=== PATIENT | female | born 1965 | race Two or more races ===

== ENCOUNTER 2017-05-15 22:45 | Emergency (ER) | payer MEDICAID ==
[~2017-05-15] VITALS: Ht 165.1 cm; Wt 74.8 kg
[2017-05-15] MEDS ORDERED: VITAMINS (23:04)
--- NOTE | 2017-05-15 23:30 | Emergency Room Report ---
History of Present Illness General Chief Complaint: Abdominal Pain Source: Patient Present Illness HPI 51-year-old female with no sig pmhx p/w abdominal pain one day. Patient claimed to mid lower abdomen for pain, radiates to R flank, intermittent. No relieving or exacerbating factors Pt reports n/v, 2-3 episodes of nbnb vomiting, denies diarrhea or constipation. Her last bowel movement was yesterday, denies it being hard Denies fever, chills. No hx of abdominal surgeries. No hx of endoscopies/colonoscopies. no hx of renal stones Allergies: Coded Allergies: No Known Allergies (Unverified , 05/15/17) Patient History Past Medical History: see triage record Past Surgical History: none Pertinent Family History: none Reviewed Nursing Documentation: PMH: Agreed, PSxH: Agreed Nursing Documentation-PMH Past Medical History: No Stated History Review of Systems All Other Systems: negative except mentioned in HPI Physical Exam Vital Signs Date Time Temp Pulse Resp B/P (MAP) Pulse Ox O2 Delivery O2 Flow Rate FiO2 05/15/17 22:55 97.6 63 18 135/70 95 Room Air 97.5 Sp02 EP Interpretation: reviewed, normal General Appearance: alert, GCS 15, non-toxic, mild distress Head: normocephalic, atraumatic Eyes: bilateral eye normal inspection, bilateral eye PERRL, bilateral eye EOMI ENT: normal ENT inspection, normal pharynx, normal voice, moist mucus membranes Neck: normal inspection, full range of motion, supple Respiratory: normal inspection, lungs clear, normal breath sounds, no respiratory distress, no retraction, no wheezing, speaking full sentences, chest symmetrical Cardiovascular #1: normal inspection, regular rate, rhythm, normal capillary refill Cardiovascular #2: 2+ radial (R), 2+ radial (L) Gastrointestinal: other - suprapubic tenderness, no focal rlq tenderness, soft , no guarding or rigidity, no cva tenderness Musculoskeletal: normal inspection, back normal, normal range of motion, non- tender Neurologic: normal inspection, alert, oriented x3, responsive, motor strength/ tone normal, sensory intact, normal gait, speech normal Psychiatric: normal inspection, judgement/insight normal, memory normal Skin: normal inspection, normal color, no rash, warm/dry, well hydrated, normal turgor Medical Decision Making Diagnostic Impression: Primary Impression: Urinary tract infection ER Course 51-year-old female with lower abdominal pain Differential Diagnosis: Gastritis, gastroenteritis, appendicitis, diverticulitis, kidney stone, UTI/ pyelo Plan: Basic labs, ua CT abdopelvis ER course: Pt is nontoxic appearing, nad. +positive UA. given ceftriaxone. abdomen continues to be soft. no need for CT imaging at this time as pt with suprapubic pain and positive ua Disposition: Patient is to be discharged to home with keflex Patient is instructed to follow up with their primary care doctor within 5 days. Strict return precautions discussed with patient such as fever, chills, worsening/severe abdominal pain, nausea, vomiting, black or bloody stools, which may indicate severe illness. Patient verbalizes understanding and agrees with plan. Please note that this Emergency Department Report was dictated using [employer]pri[employer] technology software, occasionally this can lead to erroneous entry secondary to interpretation by the dictation equipment Laboratory Tests Test 05/15/17 23:32 White Blood Count 7.6 K/UL (4.8-10.8) Red Blood Count 4.50 M/UL (4.20-5.40) Hemoglobin 14.4 G/DL (12.0-16.0) Hematocrit 40.3 % (37.0-47.0) Mean Corpuscular Volume 90 FL (80-99) Mean Corpuscular Hemoglobin 32.0 PG (27.0-31.0) H Mean Corpuscular Hemoglobin Concent 35.7 G/DL (32.0-36.0) Red Cell Distribution Width 10.5 % (11.6-14.8) L Platelet Count 238 K/UL (150-450) Mean Platelet Volume 7.5 FL (6.5-10.1) Neutrophils (%) (Auto) 61.6 % (45.0-75.0) Lymphocytes (%) (Auto) 29.4 % (20.0-45.0) Monocytes (%) (Auto) 6.3 % (1.0-10.0) Eosinophils (%) (Auto) 1.9 % (0.0-3.0) Basophils (%) (Auto) 0.8 % (0.0-2.0) Urine Color Pale yellow Urine Appearance Clear Urine pH 6 (4.5-8.0) Urine Specific [place] 1.015 (1.005-1.035) Urine Protein Negative (NEGATIVE) Urine Glucose (UA) Negative (NEGATIVE) Urine Ketones Negative (NEGATIVE) Urine Occult Blood 4+ (NEGATIVE) H Urine Nitrite Positive (NEGATIVE) H Urine Bilirubin Negative (NEGATIVE) Urine Urobilinogen Normal MG/DL (0.0-1.0) Urine Leukocyte Esterase 1+ (NEGATIVE) H Urine RBC 20-30 /HPF (0 - 2) H Urine WBC 2-4 /HPF (0 - 2) Urine Squamous Epithelial Cells Few /LPF (NONE/OCC) Urine Bacteria Moderate /HPF (NONE) H Sodium Level 140 MMOL/L (136-145) Potassium Level 3.3 MMOL/L (3.5-5.1) L Chloride Level 104 MMOL/L (98-107) Carbon Dioxide Level 28 MMOL/L (21-32) Anion Gap 8 mmol/L (5-15) Blood Urea Nitrogen 17 mg/dL (7-18) Creatinine 0.7 MG/DL (0.55-1.30) Estimate Glomerular Filtration Rate > 60 mL/min (>60) Glucose Level 148 MG/DL (74-106) H Calcium Level 9.1 MG/DL (8.5-10.1) Total Bilirubin 0.3 MG/DL (0.2-1.0) Aspartate Amino Transferase (AST) 19 U/L (15-37) Alanine Aminotransferase (ALT) 27 U/L (12-78) Alkaline Phosphatase 97 U/L (46-116) Total Protein 7.5 G/DL (6.4-8.2) Albumin 3.6 G/DL (3.4-5.0) Globulin 3.9 g/dL Albumin/Globulin Ratio 0.9 (1.0-2.7) L Lipase 142 U/L (73-393) Last Vital Signs Date Time Temp Pulse Resp B/P (MAP) Pulse Ox O2 Delivery O2 Flow Rate FiO2 05/15/17 22:55 97.6 63 18 135/70 95 Room Air 97.5 Disposition: HOME, SELF-CARE Condition: Improved Scripts Cephalexin* (KEFLEX*) 500 Mg Capsule 500 MG ORAL Q6H, #28 CAP 0 Refills Prov: Nikhil Chávez M.D. 05/16/17 Nikhil Chávez M.D. May 15, 2017 23:30
[2017-05-15 23:42] LABS: APPEARANCE,URINE CLEAR; BILIRUBIN, URINE NEGATIVE (NEGATIVE); COLOR,URINE PALE YELLOW; GLUCOSE, URINE (UA) NEGATIVE (NEGATIVE); KETONES,URINE NEGATIVE (NEGATIVE); LEUKOCYTE ESTERASE ,URINE 1+ (NEGATIVE); NITRITE,URINE POSITIVE (NEGATIVE); PH,URINE 6 (4.5-8.0); PROTEIN,URINE NEGATIVE (NEGATIVE); UROBILINOGEN,URINE NORMAL MG/DL (0.0-1.0)
[2017-05-15 23:43] LABS: BASOPHILS % (AUTO) 0.8 % (0.0-2.0); EOSINOPHILS % (AUTO) 1.9 % (0.0-3.0); HEMATOCRIT 40.3 % (37.0-47.0); HEMOGLOBIN 14.4 G/DL (12.0-16.0); LYMPHOCYTES % (AUTO) 29.4 % (20.0-45.0); MEAN CORPUSCULAR VOLUME 90 FL (80-99); MONOCYTES % (AUTO) 6.3 % (1.0-10.0); NEUTROPHILS % (AUTO) 61.6 % (45.0-75.0); PLATELET COUNT 238 K/UL (150-450); RED CELL DISTRIBUTION WIDTH 10.5 % (11.6-14.8); WHITE BLOOD COUNT 7.6 K/UL (4.8-10.8)
[2017-05-15 23:50] LABS: ANION GAP 8 mmol/L (5-15); BLOOD UREA NITROGEN 17 mg/dL (7-18); CALCIUM 9.1 MG/DL (8.5-10.1); CARBON DIOXIDE 28 MMOL/L (21-32); CHLORIDE 104 MMOL/L (98-107); CREATININE 0.7 MG/DL (0.55-1.30); POTASSIUM 3.3 MMOL/L (3.5-5.1); SODIUM 140 MMOL/L (136-145)
[2017-05-15 23:54] LABS: ALANINE AMINOTRANSFERASE 27 U/L (12-78); ALBUMIN 3.6 G/DL (3.4-5.0); ALBUMIN/GLOBULIN RATIO 0.9 (1.0-2.7); ALKALINE PHOSPHATASE 97 U/L (46-116); ASPARTATE AMINO TRANSFERASE 19 U/L (15-37); BILIRUBIN,TOTAL 0.3 MG/DL (0.2-1.0)
[2017-05-16] MEDS ORDERED: KEFLEX500 MG ORAL (00:02)
[2017-05-16] MEDS ORDERED: cefTRIAXone 1 GM in NS 55 ML IVPB ONE (00:15)
[2017-05-16 00:22] VITALS: BP 130/65
[2017-05-16 00:23] VITALS: BP 130/65
== END 2017-05-16 00:24 | disposition home or self-care (01) ==
LOC: EMR 23:20
DX: N39.0 Urinary tract infection, site not specified (principal)
CPT/HCPCS: 36415; 80053; 81003; 83690; 85025; 87086; 87181; 96365; 96375; 99284; J2405

== ENCOUNTER 2018-04-06 18:35 | Emergency (ER) | payer MEDICAID, OTHER ==
[~2018-04-06] VITALS: Ht 162.6 cm; Wt 68.0 kg
[~2018-04-06 18:35] MED LIST: KEFLEX500 MG ORAL; VITAMINS
[2018-04-06] MEDS ORDERED: NKM (18:42)
--- NOTE | 2018-04-06 18:46 | NUR ---
ED Nurse Note: Pt came into the Er w/ complaints of coughing, vomiting, nausea, headache since yesterday. Rating the headache a 10/10. Non radiating. A + O x4. Ambulatory. Pt had a fever 99F oral temp in triage. Irish speaking only.
[2018-04-06 18:48] VITALS: BP 128/76
--- NOTE | 2018-04-06 19:11 | NUR ---
HAND-OFF: Report given to ANABEL Yousif.
--- NOTE | 2018-04-06 19:22 | Emergency Room Report ---
History of Present Illness General Chief Complaint: Flu Like Symptoms Source: Patient, Family Member Present Illness HPI 52-year-old female who complains of one day of fever up to 100F, associated with headache and several episodes of vomiting and generalized weakness and body aches. She denies any abdominal pain. She denies any diarrhea. She denies any shortness of breath or chest pain. She denies any change in mental status. She denies any neck pain. No exacerbating or relieving factor. Allergies: Coded Allergies: No Known Allergies (Unverified , 05/15/17) Patient History Past Surgical History: none Pertinent Family History: none Last Menstrual Period: 4 yrs ago Nursing Documentation-[facility] Past Medical History: No Stated History Review of Systems All Other Systems: negative except mentioned in HPI Physical Exam Vital Signs Date Time Temp Pulse Resp B/P (MAP) Pulse Ox O2 Delivery O2 Flow Rate FiO2 04/06/18 18:37 99.3 127 18 123/78 94 Room Air 04/06/18 18:48 96 General Appearance: well appearing, no apparent distress ENT: hearing grossly normal, normal voice Neck: full range of motion, supple Respiratory: lungs clear, normal breath sounds Gastrointestinal: normal inspection, normal bowel sounds, non tender, soft Musculoskeletal: normal inspection, back normal, no calf tenderness Neurologic: normal inspection, alert, oriented x3, responsive, international logistics manager III-XII nml as tested Psychiatric: normal inspection Skin: normal inspection, no rash Medical Decision Making Diagnostic Impression: Primary Impression: Urinary tract infection ER Course Patient presents significant complexity or wrists. Is very concerned about acute sepsis, influenza, metabolic abnormalities. The patient was given IV fluids for hydration. She was given IV morphine for pain. She feels much better. She has near complete resolution of her symptoms. She is afebrile. She was started on antibiotics IV for her urinary tract infection. I'm very concerned about likely pyelonephritis. Initially, I did consider admitting the patient to the hospital. However, she was able to tolerate a by mouth challenge. And she has shown significant improvement. She will be discharged home Pain Medication and Antibiotics and Follow-Up with the Primary Care Physician As an Outpatient. She Should Return If Is Any Change in Symptoms or Worsening Symptoms. EKG Diagnostic Results EKG Time: 19:30 Rate: tachycardiac Rhythm: NSR ST Segments: no acute changes ASA given to the pt in ED: No Last Vital Signs Date Time Temp Pulse Resp B/P (MAP) Pulse Ox O2 Delivery O2 Flow Rate FiO2 04/06/18 18:48 99.0 104 30 128/76 96 Room Air 04/06/18 18:48 96 Status: improved Disposition: HOME, SELF-CARE Scripts Ondansetron (Zofran) 4 Mg Tablet 4 MG ORAL Q6H PRN for Nausea & Vomiting, #10 TAB 0 Refills Prov: FILEMON ORR 04/06/18 Tramadol HCl (Tramadol HCl ER) 150 Mg Cpbp.25.75 50 MG ORAL QID PRN for For Pain for 7 Days, #20 CAP Prov: FILEMON ORR 04/06/18 Cephalexin* (CEPHALEXIN*) 500 Mg Tablet 500 MG ORAL EVERY 6 HOURS for 7 Days, #28 CAP Prov: FILEMON ORR 04/06/18 Referrals: [facility],REFERRING (PCP) Patient Instructions: Urinary Tract Infection, [id number] FILEMON ORR Apr 06, 2018 19:22
[2018-04-06] MEDS ORDERED: Morphine Sulfate 4mg/ml Inj (IV USE ONLY) IVP ONE (19:30)
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
[2018-04-06 20:00] VITALS: BP 119/74
[2018-04-06 20:12] LABS: BASOPHILS % (AUTO) 0.9 % (0.0-2.0); HEMOGLOBIN 14.6 G/DL (12.0-16.0); MEAN CORPUSCULAR VOLUME 90 FL (80-99); MONOCYTES % (AUTO) 9.9 % (1.0-10.0); NEUTROPHILS % (AUTO) 73.1 % (45.0-75.0); PLATELET COUNT 187 K/UL (150-450); RED BLOOD COUNT 4.76 M/UL (4.20-5.40); RED CELL DISTRIBUTION WIDTH 10.3 % (11.6-14.8); WHITE BLOOD COUNT 5.6 K/UL (4.8-10.8)
[2018-04-06 20:14] LABS: APPEARANCE,URINE SLIGHTLY CLOUDY; BILIRUBIN, URINE NEGATIVE (NEGATIVE); COLOR,URINE BROWN; GLUCOSE, URINE (UA) NEGATIVE (NEGATIVE); KETONES,URINE 1+ (NEGATIVE); LEUKOCYTE ESTERASE ,URINE 2+ (NEGATIVE); NITRITE,URINE POSITIVE (NEGATIVE); PH,URINE 5 (4.5-8.0); PROTEIN,URINE 4+ (NEGATIVE); UROBILINOGEN,URINE 1 MG/DL (0.0-1.0)
[2018-04-06 20:17] LABS: ANION GAP 11 mmol/L (5-15); BLOOD UREA NITROGEN 12 mg/dL (7-18); CARBON DIOXIDE 25 MMOL/L (21-32); CHLORIDE 98 MMOL/L (98-107); CREATININE 0.7 MG/DL (0.55-1.30); POTASSIUM 3.6 MMOL/L (3.5-5.1); SODIUM 134 MMOL/L (136-145)
[2018-04-06 20:21] LABS: ALANINE AMINOTRANSFERASE 26 U/L (12-78); ALBUMIN 3.2 G/DL (3.4-5.0); ALBUMIN/GLOBULIN RATIO 0.7 (1.0-2.7); ALKALINE PHOSPHATASE 83 U/L (46-116); ASPARTATE AMINO TRANSFERASE 19 U/L (15-37); BILIRUBIN,TOTAL 0.5 MG/DL (0.2-1.0)
[2018-04-06] MEDS ORDERED: cefTRIAXone 1 GM in NS 55 ML IVPB ONE (20:30)
[2018-04-06] MEDS ORDERED: TRAMADOL HCL150 MG ORAL (21:03)
[2018-04-06] MEDS ORDERED: CEPHALEXIN500 M1 ORAL (21:03)
[2018-04-06] MEDS ORDERED: ZOFRAN4 MG ORAL (21:03)
--- NOTE | 2018-04-06 21:20 | NUR ---
ED Nurse Note: PT COMPLETED IV ANTIBIOTICS,T OLERTED WELL, NO S/S OF ADVERSE REACTION NOTED, PT PAIN LEVEL DECREASED TO 4/10, MEDS EFFECTIVE, PT IS BEING D/C TO HOME, AWAKE, ALERT AND ORIENTED X 4, AMBULATORY, NO CP, NO SOB, TP AND DAUGHTER GIVEN F/U INFO, AFTER CARE INSTRUCTIONS AND RE-VERBALIZES PROPER MEDICATION ADMINISTRATION, IV SITE AND ARM BAND REMOVED WTIHOOUT COMPLICATIONS, NAD NOTED DURING D/C TO HOME.
[2018-04-06 21:30] VITALS: BP 110/63
[2018-04-06 21:49] VITALS: BP 110/63
--- NOTE | 2018-04-07 10:32 | Diagnostic Imaging Report ---
Indication: Shortness of breath Technique: One view of the chest Comparison: none Findings: Lungs and pleural spaces are clear. Heart size is upper limits normal. The aorta is tortuous Impression: No acute process
--- NOTE | 2018-04-07 12:41 | Cardiology Report ---
APPROVED REPORT EKG Measurement Heart [id number] Sinus tachycardia Nonspecific T wave abnormality Abnormal ECG
== END 2018-04-06 21:51 | disposition home or self-care (01) ==
LOC: EMR 18:51
DX: N39.0 Urinary tract infection, site not specified (principal)
CPT/HCPCS: 36415; 71045; 80053; 81001; 83690; 85025; 93005; 96361; 96365; 96375; 99284; J0696; J2270; J2405

== ENCOUNTER 2019-09-21 20:54 | Emergency (ER) | payer MEDICAID, OTHER ==
[~2019-09-21] VITALS: Ht 162.6 cm; Wt 84.4 kg
[~2019-09-21 20:54] MED LIST changes: +CEPHALEXIN500 M1 ORAL; +NKM; +TRAMADOL HCL150 MG ORAL; +ZOFRAN4 MG ORAL
[2019-09-21 21:05] VITALS: BP 145/94
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
[2019-09-21] MEDS ORDERED: Morphine Sulfate 2mg/ml Inj(IV/IM USE ONLY) IM ONE (21:15)
--- NOTE | 2019-09-21 21:20 | NUR ---
ED Nurse Note: Xray at bedside
[2019-09-21] MEDS ORDERED: IBUPROFEN600 M1 ORAL (22:06)
[2019-09-21 23:00] VITALS: BP 138/78
--- NOTE | 2019-09-21 23:00 | NUR ---
ER DISCHARGE NOTE: Patient is cleared to be discharged per ERMD, pt is aox4, on room air, with stable vital signs. pt was given dc and prescription instructions, pt was able to verbalize understanding, pt id band removed. pt is able to ambulate with steady gait. pt took all belongings.
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
== END 2019-09-21 23:00 | disposition home or self-care (01) ==
LOC: EMR 21:15
DX: S60.212A Contusion of left wrist, initial encounter (principal); S50.12XA Contusion of left forearm, initial encounter; S60.222A Contusion of left hand, initial encounter; Y04.2XXA Assault by strike against or bumped into by another person, initial encounter; Y92.9 Unspecified place or not applicable; M25.541 Pain in joints of right hand
CPT/HCPCS: 73090; 73130; 96372; J2270; Z7502; 99284